=== PATIENT | female | born 1975 | race Caucasian/White ===

== ENCOUNTER 2017-12-30 20:41 | Emergency (ER) | payer OTHER ==
[~2017-12-30] VITALS: Ht 160 cm; Wt 79.4 kg
[2017-12-30 21:22] LABS: URINE BILIRUBIN NEGATIVE (Negative); URINE BLOOD NEGATIVE (Negative); URINE CLARITY CLEAR; URINE COLOR YELLOW; URINE GLUCOSE-RANDOM* NEGATIVE (Negative); URINE KETONES NEGATIVE (Negative); URINE LEUKOCYTES-REFLEX NEGATIVE (Negative); URINE NITRITE-REFLEX NEGATIVE (Negative); URINE PROTEIN (DIPSTICK) NEGATIVE (Negative); URINE UROBILINOGEN 0.2 E.U./dl (0.2-1.0)
[2017-12-30 21:37] LABS: ABSOLUTE NEUTROPHILS 3.3 thou/uL (1.4-8.2); BASOPHILS 0.8 % (0.0-2.0); EOSINOPHILS 4.8 % (0.0-3.0); HEMATOCRIT 36.3 % (37.0-47.0); LYMPHOCYTES 31.7 % (24.0-44.0); MCH 31.1 pg (26.0-34.0); MCHC 35.8 g/dL (28.0-37.0); MCV 86.7 fL (80.0-100.0); MONOCYTES 5.9 % (1.0-8.0); PLATELET COUNT 239 thou/uL (150-400); POLYS 56.8 % (36.0-66.0); RBC 4.18 mil/uL (4.20-5.00); RDW 12.9 % (10.5-14.5); WBC 5.8 thou/uL (4.0-11.0)
[2017-12-30 21:46] LABS: ANION GAP 5 mmol/L (7-16); BUN 9 mg/dL (7-18); CALCIUM 9.2 mg/dL (8.5-10.1); CHLORIDE 103 mmol/L (98-107); CO2 29 mmol/L (21-32); CREATININE 0.7 mg/dL (0.6-1.0); GLUCOSE 103 mg/dL (74-106); POTASSIUM 3.5 mmol/L (3.5-5.1); SODIUM 137 mmol/L (136-145)
[2017-12-30 21:52] LABS: DIRECT BILIRUBIN < 0.1 mg/dL (<0.1-0.3); LIPASE 122 U/L (73-393); SGPT 74 U/L (30-65); TOTAL BILIRUBIN 0.2 mg/dL (<0.1-1.0); TOTAL PROTEIN 6.9 g/dL (6.4-8.2)
[2017-12-30 22:01] LABS: SGOT 32 U/L (15-37)
[2017-12-31] MEDS ORDERED: BENTYL 20 MG TA20 M1 PO (00:33)
[2017-12-31 00:41] VITALS: BP 121/76
== END 2017-12-31 00:42 | disposition home or self-care (01) ==
LOC: ER 20:41
PROVIDERS: Emergency Medicine
DX: R19.7 Diarrhea, unspecified (principal); R11.2 Nausea with vomiting, unspecified; R10.30 Lower abdominal pain, unspecified; J44.9 Chronic obstructive pulmonary disease, unspecified; F31.9 Bipolar disorder, unspecified; F41.9 Anxiety disorder, unspecified; I10 Essential (primary) hypertension; F43.10 Post-traumatic stress disorder, unspecified; Z90.49 Acquired absence of other specified parts of digestive tract; Z90.710 Acquired absence of both cervix and uterus; Z88.1 Allergy status to other antibiotic agents; Z88.5 Allergy status to narcotic agent

== ENCOUNTER 2018-02-11 04:40 | Emergency (ER) | payer OTHER ==
[~2018-02-11] VITALS: Ht 160 cm; Wt 79.4 kg
--- NOTE | ~2018-02-11 | EKG ---
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
[~2018-02-11 04:40] MED LIST: BENTYL 20 MG TA20 M1 PO; MOBIC7.5 MG PO; NORFLEX100 MG PO
[2018-02-11] MEDS ORDERED: TRILEPTAL600 MG PO (05:02)
[2018-02-11] MEDS ORDERED: WELLBUTRIN SR200 MG PO (05:02)
[2018-02-11] MEDS ORDERED: LOPRESSOR50 PO (05:03)
[2018-02-11] MEDS ORDERED: ZYRTEC10 M5 PO (05:03)
[2018-02-11] MEDS ORDERED: COZAAR 50 MG TA50 M2 PO (05:03)
[2018-02-11 05:27] LABS: ABSOLUTE NEUTROPHILS 6.5 thou/uL (1.4-8.2); BASOPHILS 0.6 % (0.0-2.0); HEMATOCRIT 35.5 % (37.0-47.0); HEMOGLOBIN 12.2 gm/dL (12.0-15.0); LYMPHOCYTES 27.8 % (24.0-44.0); MCH 30.6 pg (26.0-34.0); MCHC 34.5 g/dL (28.0-37.0); MCV 88.7 fL (80.0-100.0); MONOCYTES 6.1 % (1.0-8.0); PLATELET COUNT 271 thou/uL (150-400); POLYS 64.5 % (36.0-66.0); RDW 12.9 % (10.5-14.5); WBC 10.1 thou/uL (4.0-11.0)
[2018-02-11 05:35] LABS: ANION GAP 11 mmol/L (7-16); BUN 13 mg/dL (7-18); CALCIUM 8.7 mg/dL (8.5-10.1); CHLORIDE 104 mmol/L (98-107); CO2 25 mmol/L (21-32); CREATININE 0.7 mg/dL (0.6-1.0); GLUCOSE 93 mg/dL (74-106); POTASSIUM 3.5 mmol/L (3.5-5.1); SODIUM 140 mmol/L (136-145)
[2018-02-11] MEDS ORDERED: PREDNISONE 20 M20 MG PO (05:42)
[2018-02-11] MEDS ORDERED: DOXYCYCLINE 10100 MG PO (05:42)
[2018-02-11 05:43] LABS: ALBUMIN 3.7 g/dL (3.4-5.0); SGOT 10 U/L (15-37); SGPT 33 U/L (30-65); TOTAL BILIRUBIN 0.5 mg/dL (<0.1-1.0); TOTAL PROTEIN 6.5 g/dL (6.4-8.2); TROPONIN-I <0.06 ng/mL (<0.06)
[2018-02-11 06:04] VITALS: BP 137/69
== END 2018-02-11 06:05 | disposition home or self-care (01) ==
LOC: ER 04:40
PROVIDERS: Emergency Medicine
DX: J44.1 Chronic obstructive pulmonary disease with (acute) exacerbation (principal); F31.9 Bipolar disorder, unspecified; F41.9 Anxiety disorder, unspecified; I10 Essential (primary) hypertension; Z87.891 Personal history of nicotine dependence; Z88.5 Allergy status to narcotic agent; Z88.1 Allergy status to other antibiotic agents; Z88.8 Allergy status to other drugs, medicaments and biological substances; Z90.49 Acquired absence of other specified parts of digestive tract; Z90.710 Acquired absence of both cervix and uterus

== ENCOUNTER 2018-04-27 08:56 | Emergency (ER) | payer OTHER ==
[~2018-04-27] VITALS: Ht 160 cm; Wt 79.4 kg
[~2018-04-27 08:56] MED LIST changes: +COZAAR 50 MG TA50 M2 PO; +DOXYCYCLINE 10100 MG PO; +LOPRESSOR50 PO; +PREDNISONE 20 M20 MG PO; +TRILEPTAL600 MG PO; +WELLBUTRIN SR200 MG PO; +ZYRTEC10 M5 PO
[2018-04-27] MEDS ORDERED: GENTAMICIN OPH3.5 G1 OPHTHALMIC (10:19)
== END 2018-04-27 13:03 | disposition home or self-care (01) ==
LOC: ER 08:56
DX: H00.011 Hordeolum externum right upper eyelid (principal); J44.9 Chronic obstructive pulmonary disease, unspecified; F31.9 Bipolar disorder, unspecified; F41.9 Anxiety disorder, unspecified; I10 Essential (primary) hypertension; Z90.49 Acquired absence of other specified parts of digestive tract; Z90.710 Acquired absence of both cervix and uterus; Z87.891 Personal history of nicotine dependence; Z88.5 Allergy status to narcotic agent; Z88.1 Allergy status to other antibiotic agents